=== PATIENT | female | born 1940 ===

== ENCOUNTER 2018-03-13 10:10 | Outpatient (CLI) | payer OTHER ==
[~2018-03-13 10:10] MED LIST: AVAPRO300 MG; HYDROCHLOROTHIA25 MG; INTESTINEX680 MG PO; METHOCARBAMOL500 MG PO; NEURONTIN300 MG; TRAMADOL HCL-1 UDTAB
== END 2018-03-13 10:31 | disposition home or self-care (01) ==
LOC: RAD 10:10
DX: M54.89 Other dorsalgia (principal); M54.2 Cervicalgia
CPT/HCPCS: 72146; 72148